=== PATIENT | female | born 1980 | race Caucasian/White ===

== ENCOUNTER 2024-07-27 09:52 | Emergency (ER) | payer MEDICAID, SELFPAY ==
--- NOTE | ~2024-07-27 | CT_ITS ---
EXAMINATION: CT CERVICAL SPINE WITHOUT CONTRAST CLINICAL INFORMATION: Fall with cervical pain. COMPARISON: None available. TECHNIQUE: Axial sections performed in bone and soft tissue windows without IV contrast enhancement. Sagittal and coronal reconstructions performed. This CT examination was performed using dose optimization techniques as appropriate, variously including the following: *Automated exposure control *Adjustment of mA and/or kV according to patient size (this includes techniques or standardized protocols for targeted exams where dose is matched to indication/reason for exam; i.e. extremities or head) *Use of iterative reconstruction technique DLP: 714.7 mGy-cm FINDINGS: The odontoid and the condyles are unremarkable. No evidence for acute cervical compression fracture. Spondylitic change and eccentric degenerative disc space narrowing, most pronounced C5-C7. Spinous processes intact. There is mild facet arthrosis. Variable foraminal encroachment related to uncinate hypertrophic change. The mastoids are well aerated. No suspicious cervical chain adenopathy. Epiglottis and vocal cords unremarkable. CT/CT cervical spine wo IV con IMPRESSION: No evidence for acute fracture. Degenerative changes as noted above Fleischner guidelines were followed. Electronically signed by: Zbigniew Mullins MD 07/27/2024 11:49 AM EDT
--- NOTE | ~2024-07-27 | XR_ITS ---
EXAMINATION: XR KNEE, RIGHT CLINICAL INFORMATION: Pain, injury. COMPARISON: None available. TECHNIQUE: 5 views of the right knee. FINDINGS: Diffuse demineralization. Large prepatellar soft tissue/fluid collection. Joint effusion. Moderate narrowing of the medial compartment with small tricompartmental osteophytes. XR/XR knee RT 3V IMPRESSION: 1. Large prepatellar soft tissue/fluid collection. Joint effusion. 2. Moderate degenerative changes. 3. Additional imaging with CT scan should be considered for further evaluation if there is clinical concern for fracture or other underlying pathology. This study was presented today July 27, 2024 for interpretation. Stat results provided at this time as requested by referring provider. Electronically signed by: aDisy Cunningham MD 07/27/2024 11:29 AM EDT
--- NOTE | ~2024-07-27 | CT_ITS ---
EXAMINATION: CT HEAD WITHOUT CONTRAST CLINICAL INFORMATION: Fall. Pain COMPARISON: None available. TECHNIQUE: Contiguous axial imaging was performed from the skull base to vertex without intravenous administration of contrast. This CT examination was performed using dose optimization techniques as appropriate, variously including the following: *Automated exposure control *Adjustment of mA and/or kV according to patient size (this includes techniques or standardized protocols for targeted exams where dose is matched to indication/reason for exam; i.e. extremities or head) *Use of iterative reconstruction technique DLP: 519 mGy-cm FINDINGS: Sulci and ventricles are age-appropriate. No intra or extra-axial fluid collection, hemorrhage, mass, or mass effect. Calvarium is intact. CT/CT head/brain wo IV con IMPRESSION: No acute intracranial pathology. Electronically signed by: Ananth Tomas MD 07/27/2024 11:32 AM EDT
--- NOTE | ~2024-07-27 | CT_ITS ---
EXAMINATION: CT KNEE WITHOUT CONTRAST, RIGHT CLINICAL INFORMATION: Knee pain and abnormal radiograph COMPARISON: None available. TECHNIQUE: Thin section axial imaging with sagittal and coronal reformats. This CT examination was performed using dose optimization techniques as appropriate, variously including the following: *Automated exposure control *Adjustment of mA and/or kV according to patient size (this includes techniques or standardized protocols for targeted exams where dose is matched to indication/reason for exam; i.e. extremities or head) *Use of iterative reconstruction technique DLP: 203 mGy-cm FINDINGS: There is a large prepatellar effusion, as was seen on the accompanying radiograph. In addition, there is a suprapatellar effusion present with a fat fluid level which would suggest the presence of an intra-articular fracture. There is narrowing of the patellofemoral joint space but a discrete fracture is not seen. MRI would be more sensitive if there is suspicion for an acute patellar subluxation and reduction. The patellar tendon and quadriceps tendon insertion appear intact. There is prominence to the tibial spines as well as arthritic change in the medial joint space with joint space narrowing and marginal osteophyte formation. There is slight irregularity, along the far posterior medial tibial plateau, likely chronic. The lateral joint spaces preserved. There is mild subchondral sclerotic change in the lateral femoral condyle. A soft tissue shadow of the ACL and PCL are clearly delineated. CT/CT knee RT wo IV con IMPRESSION: Large prepatellar soft tissue swelling and a small suprapatellar effusion with a fat fluid level suggestive of an intra-articular injury. The anterior fluid collection, may be the result of direct trauma and likely reflects a hematoma. I suspect in this case, MRI would be helpful to further evaluate for the possibility of a small fracture, as described in the body of this report. Electronically signed by: Ananth Tomas MD 07/27/2024 02:30 PM EDT RP
[2024-07-27 09:57] VITALS: BMI 34.1
[2024-07-27 10:08] VITALS: BP 94/71; PULSE 105; RESP 16; TEMP 36.8; O2SAT 97
--- NOTE | 2024-07-27 10:08 | ED_ITS ---
HPI - General Adult General Chief complaint: Fall Stated complaint: fall Time Seen by Provider: 07/27/24 10:06 Source: patient and EMS Mode of arrival: EMS Limitations: no limitations History of Present Illness ED Provider: Enriqueta Clifford PA-C HPI narrative: Patient is a 43 year old assigned female at with a history of psychiatric illness presenting to the emergency department today with continued confusion, right knee pain, and multiple falls. Patient states that she has been feeling confused for days and disassociating intermittently. Patient states that because of this she has had multiple falls. Patient states that her right knee hurts. Patient denies any dizziness, lightheadedness, abdominal pain, nausea, vomiting, fever, chills, blurry vision, double vision, loss of vision, chest pain, difficulty breathing, shortness of breath, back pain, night sweats, pain with urination, increased urinary frequency, increased urinary urgency, blood in her urine or stool, syncope or a near syncopal episode, bowel incontinence, bladder incontinence, or any other complaints at this time. Relieving factors: none Exacerbating factors: none Associated symptoms: denies other symptoms Treatments prior to arrival: none Related Data Allergies Allergy/AdvReac Type Severity Reaction Status Date / Time aripiprazole [From Abilify] Allergy Fatigued Verified 07/27/24 10:02 metoclopramide [From Reglan] Allergy Unknown Verified 07/27/24 10:02 nickel Allergy Unknown Verified 07/27/24 10:02 Review of Systems 2 Constitutional: Constitutional: Reports no additional constitutional complaints, Denies chills, Denies fever(s) and Denies night sweats Eyes: Eyes: Reports no additional eye complaints, Denies blurry vision, Denies change in vision, Denies diplopia, Denies eye discharge, Denies loss of vision and Denies eye pain ENT: Denies dizziness Cardiovascular: Cardiovascular: Reports no additional cardiovascular complaints, Denies chest pain, Denies lightheadedness, Denies Loss of Consciousness and Denies dyspnea Respiratory: Respiratory: Reports no additional respiratory complaints and Denies dyspnea Gastrointestinal: Gastrointestinal: Reports no additional gastrointestinal complaints, Denies abdominal pain, Denies melena, Denies hematochezia, Denies change in bowel habits and Denies change in stool character Genitourinary: Genitourinary: Denies hematuria, Denies urinary frequency, Denies dysuria, Denies urinary incontinence, Denies urinary hesitancy and Denies urinary urgency Musculoskeletal: Musculoskeletal: Reports no additional musculoskeletal complaints, Denies numbness and Denies tingling Comments: right knee pain Neurologic: Reports confusion, Denies dizziness, Denies loss of vision, Denies numbness and Denies tingling Psychiatric: Psychiatric: Reports no additional psychiatric complaints and Reports confusion Endocrine: Endocrine: Reports no additional endocrine complaints Hematologic/Lymphatic: Hematologic/Lymphatic: Reports no additional hematologic/lymphatic complaints Allergic/Immunologic: Allergic/Immunologic: Reports no additional allergic/immunologic complaints [facility] Past Medical History Attestation statement: The following information was validated with the patient. Source: old records reviewed and nursing notes reviewed Social History Social History Smoked in Last 30 Days: No Use of substances other than those prescribed or required for medical reasons: No Advance Directives: No Do you have a plan to hurt others: No Plan Patient : No Physical Exam ED Vital Signs: Vital Signs - 24 hr 07/27/24 10:08 07/27/24 10:19 07/27/24 12:43 Temperature 98.3 F 98.9 F 97.6 F Pulse Rate 105 H 117 H 83 Respiratory Rate 16 23 H 18 Blood Pressure 94/71 106/71 103/52 L Pulse Oximetry 97 94 96 Oxygen Delivery Method Room Air Room Air Room Air BMI result Body Mass Index 34.1 Const General: confusion Nutritional Appearance: well nourished Orientation/consciousness: oriented to person, oriented to place and confusion Limitations: no limitations [facility] Head: Yes normal to inspection and Yes atraumatic Ears: hearing grossly normal bilaterally and external ears normal General nose exam: Normal external nose present, no nasal discharge noted and no epistaxis Face and sinus: Yes normal facial exam, No abrasion and No laceration Mouth: Normal oral and palatal mucosa present, no drooling and no muffled voice Eyes General: appearance normal, both eyes and all related structures Periorbital: periorbital findings normal Eyelids: Yes eyelids normal Conjunctivae: conjunctivae normal Pupils: Equal, round and reactive pupils present EOM: EOMs intact bilaterally Neck Neck: Yes normal visual inspection, Yes full ROM and Yes no lymphadenopathy Chest Chest palpation & inspection: normal inspection of the chest Resp Effort & Inspection: normal respiratory effort and able to speak in complete sentences GI Inspection: Yes normal to inspection Neuro General: oriented to person, oriented to place and confusion Cranial nerves: Yes Equal, round and reactive pupils present Cognition (Neuro): normal cognition Extrem Other: bruising present to the right knee General: Yes full ROM and Yes capillary refill normal Psych Appearance: grossly normal Mental Status: mental status grossly normal Affect: Blunted affect present Procedures Orthopedic Splinting/Casting Injury #1: Side: right Lower Extremity Injury Location: knee Lower Extremity Immobilizer: Colten wrap Medical Decision Making Medical Decision Making MDM Narrative: Patient is a 43 year old assigned female at with a history of psychiatric illness presenting to the emergency department today with continued confusion, right knee pain, and multiple falls. Patient's physical exam showed an individual who was relatively oriented with right knee bruising. Patient's blood work showed mildly elevated LFTs and a low lithium level but otherwise unremarkable. Patient's EKG was unremarkable. Patient's CT head and c-spine showed no acute process. Patient's right knee x-ray showed a large prepetllar soft tissue / fluid collection and recommended CT for further evaluation. Patient's right knee CT confirmed a large prepatellar soft tissue swelling and joint effusion. I spoke with the orthopedic team who recommended COLTEN wrap and follow up on an outpatient basis. COLTEN wrap was applied, without incident. Patient's PMS was intact prior to and after COLTEN placement. I called and spoke to the covering provider at [facility], Ramona. I explained that the patient does not need to remain in an COTLEN Wrap while on the unit but if she were - it would expedite her healing. Ramona verbalized understanding and stated it was OK for the patient to return to [facility]. I explained my physical exam findings as well as all test results to the patient. I answered all questions asked by the patient. Patient verbalized agreement and understanding with this treatment plan and transfer back to [facility]. Differential Diagnosis Differential Diagnoses: The differential diagnosis associated with the presentation includes Joint effusion Falls Psychiatric illness AMS Admission/Observation Consideration of admission/observation: Escalation of care including admission/observation considered Patient would have been admitted to the hospital had her work up had any findings where hospital admission was appropriate and her clinical presentation warranted hospital admission. Consult Healthcare Provider Management of the patient was discussed with: Dope Weigh Operator (spoke to the orthopedic team as noted in the MDM Rationale portion of this note) Lab Data MDM Lab Attestation statement: I reviewed the patient's lab results. My interpretation of these results are in the MDM Rationale portion of this note. 07/27/24 10:27 07/27/24 10:27 Labs: Lab Results 07/27/24 07/27/24 Range/Units 10:27 10:58 WBC 8.7 (4.8-10.8) X10*3/uL RBC 3.82 L (4.20-5.50) X10*6/uL Hgb 11.3 L (12.0-16.0) g/dl Hct 32.0 L (37.0-47.0) % MCV 83.8 (80.0-98.0) fL MCH 29.6 (27.0-33.0) pg MCHC 35.3 H (31.0-35.0) g/dl RDW 12.5 (11.0-16.0) % Plt Count 211 (160-400) X10*3/uL MPV 9.2 L (9.4-12.3) fL Immature Gran % (Auto) 0.5 H (0.0-0.4) % Neut % (Auto) 70.1 (45-73) % Lymph % (Auto) 20.0 (20-40) % [place] % (Auto) 7.0 (2-11) % Eos % (Auto) 2.2 (0-4) % Baso % (Auto) 0.2 (0-2) % Lymph # (Auto) 1.7 (1.2-4.9) X10*3/uL [place] # (Auto) 0.6 (0.1-1.2) X10*3/uL Eos # (Auto) 0.2 (0.0-0.4) X10*3/uL Baso # (Auto) 0.0 (0.0-0.2) X10*3/uL Abs Immat Gran (auto) 0.04 H (0.00-0.03) X10*3/uL Absolute Neuts (auto) 6.1 (2.0-8.3) x10*3/uL Absolute Nucleated RBC 0.000 (0.0-0.012) X10*3/uL Nucleated RBC % (auto) 0.0 (0.0-0.2) /100WBC Sodium 139 (135-145) mmol/L Potassium 3.9 (3.3-5.1) mmol/L Chloride 105 (96-108) mmol/L Carbon Dioxide 26 (22-29) mmol/L Anion Gap 12 (12-20) BUN 15 (9-16) mg/dL Creatinine 1.03 (0.5-1.4) mg/dL Estim Creat Clear Calc 88.7 Estimated GFR 59 Random Glucose 104 (60-115) mg/dL Calcium 8.9 (8.4-10.2) mg/dL Magnesium 2.1 (1.6-2.6) mg/dL Total Bilirubin 0.4 (0.0-1.0) mg/dL AST 150 H (5-31) U/L ALT 153 H (0-31) U/L Alkaline Phosphatase 135 H (39-117) U/L Ammonia 46 (13-55) umol/L Total Protein 6.8 (6.5-8.0) g/dL Albumin 3.7 (3.5-5.0) g/dL TSH 3.85 (0.32-4.0) uIU/mL Beta HCG, Quant < 2 mIU/mL [address] 0.18 L (0.60-1.20) mmol/L Influenza Type A (PCR) NEGATIVE (Negative) Influenza Type B (PCR) NEGATIVE (Negative) RSV RNA Qual (PCR) NEGATIVE (Negative) SARS-CoV-2 RNA (RT-PCR) NEGATIVE (Negative) Independent Interpretation I performed an independent interpretation of an: EKG, Plain X-Ray and CT Scan Interpretation: My interpretation is in agreement with the radiologist's impression of these imaging studies. L EXAMINATION: CT CERVICAL SPINE WITHOUT CONTRAST CLINICAL INFORMATION: Fall with cervical pain. COMPARISON: None available. TECHNIQUE: Axial sections performed in bone and soft tissue windows without IV contrast enhancement. Sagittal and coronal reconstructions performed. This CT examination was performed using dose optimization techniques as appropriate, variously including the following: *Automated exposure control *Adjustment of mA and/or kV according to patient size (this includes techniques or standardized protocols for targeted exams where dose is matched to indication/reason for exam; i.e. extremities or head) *Use of iterative reconstruction technique DLP: 714.7 mGy-cm FINDINGS: The odontoid and the condyles are unremarkable. No evidence for acute cervical compression fracture. Spondylitic change and eccentric degenerative disc space narrowing, most pronounced C5-C7. Spinous processes intact. There is mild facet arthrosis. Variable foraminal encroachment related to uncinate hypertrophic change. The mastoids are well aerated. No suspicious cervical chain adenopathy. Epiglottis and vocal cords unremarkable. CT/CT cervical spine wo IV con IMPRESSION: No evidence for acute fracture. Degenerative changes as noted above Fleischner guidelines were followed. Electronically signed by: Zbigniew Mullins MD 07/27/2024 11:49 AM EDT Dictated By: Zbigniew Mullins Signed By: Electronically signed by Zbigniew Mullins 07/27/24 1149 EXAMINATION: CT HEAD WITHOUT CONTRAST CLINICAL INFORMATION: Fall. Pain COMPARISON: None available. TECHNIQUE: Contiguous axial imaging was performed from the skull base to vertex without intravenous administration of contrast. This CT examination was performed using dose optimization techniques as appropriate, variously including the following: *Automated exposure control *Adjustment of mA and/or kV according to patient size (this includes techniques or standardized protocols for targeted exams where dose is matched to indication/reason for exam; i.e. extremities or head) *Use of iterative reconstruction technique DLP: 519 mGy-cm FINDINGS: Sulci and ventricles are age-appropriate. No intra or extra-axial fluid collection, hemorrhage, mass, or mass effect. Calvarium is intact. CT/CT head/brain wo IV con IMPRESSION: No acute intracranial pathology. Electronically signed by: Ananth Tomas MD 07/27/2024 11:32 AM EDT Dictated By: Ananth Tomas MD Signed By: Electronically signed by Ananth Tomas MD 07/27/24 1132 EXAMINATION: XR KNEE, RIGHT CLINICAL INFORMATION: Pain, injury. COMPARISON: None available. TECHNIQUE: 5 views of the right knee. FINDINGS: Diffuse demineralization. Large prepatellar soft tissue/fluid collection. Joint effusion. Moderate narrowing of the medial compartment with small tricompartmental osteophytes. XR/XR knee RT 3V IMPRESSION: 1. Large prepatellar soft tissue/fluid collection. Joint effusion. 2. Moderate degenerative changes. 3. Additional imaging with CT scan should be considered for further evaluation if there is clinical concern for fracture or other underlying pathology. This study was presented today July 27, 2024 for interpretation. Stat results provided at this time as requested by referring provider. Electronically signed by: Daisy Cunningham MD 07/27/2024 11:29 AM EDT RP Dictated By: Daisy Cunningham MD Signed By: Electronically signed by Daisy Cunningham MD 07/27/24 1129 EXAMINATION: CT KNEE WITHOUT CONTRAST, RIGHT CLINICAL INFORMATION: Knee pain and abnormal radiograph COMPARISON: None available. TECHNIQUE: Thin section axial imaging with sagittal and coronal reformats. This CT examination was performed using dose optimization techniques as appropriate, variously including the following: *Automated exposure control *Adjustment of mA and/or kV according to patient size (this includes techniques or standardized protocols for targeted exams where dose is matched to indication/reason for exam; i.e. extremities or head) *Use of iterative reconstruction technique DLP: 203 mGy-cm FINDINGS: There is a large prepatellar effusion, as was seen on the accompanying radiograph. In addition, there is a suprapatellar effusion present with a fat fluid level which would suggest the presence of an intra-articular fracture. There is narrowing of the patellofemoral joint space but a discrete fracture is not seen. MRI would be more sensitive if there is suspicion for an acute patellar subluxation and reduction. The patellar tendon and quadriceps tendon insertion appear intact. There is prominence to the tibial spines as well as arthritic change in the medial joint space with joint space narrowing and marginal osteophyte formation. There is slight irregularity, along the far posterior medial tibial plateau, likely chronic. The lateral joint spaces preserved. There is mild subchondral sclerotic change in the lateral femoral condyle. A soft tissue shadow of the ACL and PCL are clearly delineated. CT/CT knee RT wo IV con IMPRESSION: Large prepatellar soft tissue swelling and a small suprapatellar effusion with a fat fluid level suggestive of an intra-articular injury. The anterior fluid collection, may be the result of direct trauma and likely reflects a hematoma. I suspect in this case, MRI would be helpful to further evaluate for the possibility of a small fracture, as described in the body of this report. Electronically signed by: Ananth Tomas MD 07/27/2024 02:30 PM EDT RP Dictated By: Ananth Tomas MD Signed By: Electronically signed by Annath Tomas MD 07/27/24 1430 Radiology Impression Discussion of test interpretation with radiology: I have reviewed the radiologist's reading. Independent Historian Clinical information obtained from an independent historian. History obtained from or confirmed by: EMS (EMS provided additional history and confirmed the history providd by the patient) Critical Care Time Critical Care Time Critical Care Time: Yes Total Critical Care Time: 52 Attestation: I spent 52 minutes of Critical Care Time with this patient. This does not include time spent on separately reported billable procedures. Discharge Plan Discharge Clinical Impression: Fall, Joint effusion Patient Disposition: Home, Self-Care Instructions: Fall Prevention (ED) Additional Instructions: Follow up with your primary care provider and an orthopedic provider. Return to the emergency department immediately if your symptoms worsen or if you develop any dizziness, shortness of breath, difficulty breathing, chest pain, blurry vision, loss of vision, nausea, vomiting, abdominal pain, fever, chills, back pain, or any other complaints. Referrals: [facility] [Provider Group] (Call to establish and follow up with a primary care provider. If you already have a primary care provider, please follow up with them.) [facility], [place] [Provider Group] (Call to establish and follow up with a primary care provider. If you already have a primary care provider, please follow up with them.) [facility] Primary [facility],[place] [Provider Group] (Call to establish and follow up with a primary care provider. If you already have a primary care provider, please follow up with them.) [facility] Orth[facility] Surgeons [Provider Group] (Call to establish and follow up with an orthopedic provider. ) Print Language: Angolan
--- NOTE | 2024-07-27 10:08 | ECG_ITS ---
Test Reason : CONFUSION Blood Pressure : / mmHG Vent. Rate : 099 BPM Atrial Rate : 099 BPM P-R Int : 174 ms QRS Dur : 092 ms QT Int : 370 ms P-R-T Axes : 045 052 005 degrees QTc Int : 474 ms Normal sinus rhythm Possible Left atrial enlargement Cannot rule out Inferior infarct , age undetermined ST & T wave abnormality, consider anterolateral ischemia Abnormal ECG No previous ECGs available Referred By: Enriqueta Clifford Electronically Signed By:SAMIA LAURENT
[2024-07-27 10:19] VITALS: BP 106/71; PULSE 117; RESP 23; TEMP 37.2; O2SAT 94
[2024-07-27 10:36] LABS: MANUAL DIFF FLAG NO
--- NOTE | 2024-07-27 10:37 | PC.NURSE ---
pt bailey from [facility] on [facility] s/p unwitnessed fall x 2 days ago. increase in falling the past few days. seen at an ED in [place]? contusion to right knee. small bruising/abrasion left arm. -headstrike. -loc. -thinners. confused/disorganized thoughts baseline? reports SI/denies HI. upon ED arrival - pt alert and oriented to name only. pt states she is in [place]. unaware on what year it is. when asked what she presents to the ED for, she states, they always tell us to wash our hands and this and that. vss and up to date. pt reports increase in falls the past few days. denies feeling dizzy/lightheaded prior to fall. states she is unaware on why she keeps falling but she just does. pt reports landing on her right knee. knee displays as ecchymotic/edematous/tender to the touch. large blood blisters noted to knee. labs obtained/sent to lab. ekg performed by tech. no sob/wob noted. respirations even/unlabored. plan of care ongoing. 1:1 sitter bedside. call nowak placed within reach.
[2024-07-27 10:40] LABS: Basophils Percent Auto 0.2 % (0-2); Eosinophils Absolute Auto 0.2 X10*3/uL (0.0-0.4); Eosinophils Percent Auto 2.2 % (0-4); Hemoglobin 11.3 g/dl (12.0-16.0); Imm Gran Abs Auto 0.04 X10*3/uL (0.00-0.03); Imm Gran Pct Auto 0.5 % (0.0-0.4); Lymphocytes Absolute Auto 1.7 X10*3/uL (1.2-4.9); Mean Corpuscular HGB Conc 35.3 g/dl (31.0-35.0); Mean Corpuscular Hemoglobin 29.6 pg (27.0-33.0); Mean Corpuscular Volume 83.8 fL (80.0-98.0); Mean Platelet Volume 9.2 fL (9.4-12.3); Monocytes Absolute Auto 0.6 X10*3/uL (0.1-1.2); Neutrophils Absolute Auto 6.1 x10*3/uL (2.0-8.3); Neutrophils Percent Auto 70.1 % (45-73); Platelet Count 211 X10*3/uL (160-400); Red Blood Count 3.82 X10*6/uL (4.20-5.50); Red Cell Distribution Width 12.5 % (11.0-16.0); White Blood Count 8.7 X10*3/uL (4.8-10.8)
[2024-07-27 10:44] LABS: Ammonia 46 umol/L (13-55)
[2024-07-27 10:52] LABS: Anion Gap 12 (12-20)
[2024-07-27 10:54] LABS: Alanine Aminotransferase 153 U/L (0-31); Albumin Level 3.7 g/dL (3.5-5.0); Alkaline Phosphatase 135 U/L (39-117); Aspartate Amino Transferase 150 U/L (5-31); Bilirubin Total 0.4 mg/dL (0.0-1.0); Blood Urea Nitrogen 15 mg/dL (9-16); Calcium 8.9 mg/dL (8.4-10.2); Carbon Dioxide 26 mmol/L (22-29); Chloride 105 mmol/L (96-108); Creatinine Clr Calc Pharmacy 88.7; Estimated Glomerular Filt Rate 59; Glucose Random 104 mg/dL (60-115); Magnesium 2.1 mg/dL (1.6-2.6); Potassium 3.9 mmol/L (3.3-5.1); Sodium 139 mmol/L (135-145); Total Protein 6.8 g/dL (6.5-8.0)
--- NOTE | 2024-07-27 11:03 | PC.NURSE ---
labs obtained/sent to lab. pt otherwise continues to remain confused. unaware on where she is or what the plan is moving forward despite being oriented multiple times. no sob/wob noted. respirations remain even/unlabored. 1:1 sitter bedside. plan of care ongoing. call nowak placed within reach.
--- NOTE | 2024-07-27 11:10 | PC.NURSE ---
1:1 assist needed to ambulate to the restroom. pt verbalizes she needs to urinate but is unable to so once she is in the restroom. pt aware UA is still needed. will reattempt.
[2024-07-27 11:14] LABS: Influenza A PCR NEGATIVE (Negative); Influenza B PCR NEGATIVE (Negative); Resp Syncy Virus RNA Qual PCR NEGATIVE (Negative); SARS COV2 PCR INHOUSE NEGATIVE (Negative)
[2024-07-27 11:17] LABS: Lithium 0.18 mmol/L (0.60-1.20)
[2024-07-27 12:12] LABS: HCG Quantitative < 2 mIU/mL; TSH reflex Free T4 3.85 uIU/mL (0.32-4.0)
[2024-07-27 12:43] VITALS: BP 103/52; PULSE 83; RESP 18; TEMP 36.4; O2SAT 96
--- NOTE | 2024-07-27 15:43 | PC.NURSE ---
pt up for discharge - transportation via BLS back to [facility] @ [phone]. pt notified/aware of ETA. will call report to Jalbumjose maria shortly. pt otherwise continues to remain confused but in no apparent distress. calm/cooperative. no sob/wob noted. respirations even/unlabored. plan of care ongoing. call nowak placed within reach.
[2024-07-27 16:30] LABS: Appearance Urine Cloudy; Color Urine Yellow; Glucose Urine UA Negative (Negative); Leukocyte Esterase Urine Moderate (2+) (Negative); Nitrite Urine Negative (Negative); PH 5.5 (5.0-9.0); Specific Gravity - Urine 1.025 (1.005-1.025); UMIC TRIGGER UACC YES; Urine Blood Negative (Negative); Urine Ketones Trace mg/dL (Negative); Urine Protein Negative (Neg-Trace)
[2024-07-27 16:33] LABS: Bacteria Urine 3+ (None Seen); Hyaline Casts Urine 0-2 /LPF (0-2); RBC Urine 0-2 /HPF (0-2); Squamous Epithelial Cell Urine >20 /HPF (0-2); UACC Culture Trigger YES; WBC Urine 21-50 /HPF (0-5)
[2024-07-27 16:39] LABS: Amphetamine Screen Urine Not Detected (Not Detect); Barbiturates, Urine Not Detected (Not Detect); Benzodiazepines Screen Urine POSITIVE (Not Detect); Buprenorphine Scr Not Detected (Not Detect); Cannabinoid Screen Urine Not Detected (Not Detect); Cocaine Screen Urine Not Detected (Not Detect); Fentanyl, urine Not Detected (Not Detect); Methadone Screen, Urine Positive (Not Detect); Opiate Screen Urine Not Detected (Not Detect); Oxycodone Screen Urine Not Detected (Not Detect); Phencyclidine Screen Urine POSITIVE (Not Detect)
[2024-07-27 16:44] VITALS: BP 113/87; PULSE 84; RESP 18; TEMP 36.6; O2SAT 100
--- NOTE | 2024-07-27 17:00 | PC.NURSE ---
bacitracin, nonpick pads, lefty bandage wrap applied to pt's right knee. pt tolerated well.
--- NOTE | 2024-07-27 18:19 | PC.NURSE ---
belongings retrieved from pod closet. report given to CHACE simmons at this time.
--- NOTE | 2024-07-27 18:27 | PC.NURSE ---
report given to SCHUYLER Alexis at [facility] at this time.
[2024-07-27 18:28] VITALS: BP 113/87; PULSE 84; RESP 18; TEMP 36.6; O2SAT 100
== END 2024-07-27 18:28 | disposition home or self-care (01) ==
PROVIDERS: Physician Assistant Medical; Emergency Provider Emergency Medicine Emergency Medical Services
DX: R41.0 Disorientation, unspecified (principal); M25.461 Effusion, right knee; M54.2 Cervicalgia; Z91.81 History of falling; Z03.818 Encounter for observation for suspected exposure to other biological agents ruled out
CPT/HCPCS: 0241U; 36415; 70450; 72125; 73562; 73700; 80053; 80178; 80307; 81001; 82140; 83735; 84443; 84702; 85025; 87086; 93005; 99284; 99285

== ENCOUNTER → 2024-07-27 10:08 | Outpatient (BNV) | payer MEDICAID, SELFPAY | PROVIDERS: Emergency Provider Emergency Medicine Emergency Medical Services; Visit Provider Internal Medicine | DX: R94.31 Abnormal electrocardiogram [ECG] [EKG] (principal) | CPT/HCPCS: 93010 ==